=== PATIENT | male | born 1990 | race Caucasian/White ===

== ENCOUNTER 2019-02-20 17:12 | Emergency (ER) | payer BC ==
[~2019-02-20] VITALS: Ht 198.1 cm; Wt 84.1 kg
[2019-02-20 17:42] VITALS: BP 135/86
[2019-02-20] MEDS ORDERED: AMOXICILLIN 50500 MG PO (20:06)
[2019-02-20 20:37] LABS: BASO % 0.3 % (0.0-2.0); EOS % 0.3 % (0-4.0); GRAN # 9.1 (1.4-6.5); GRAN % 78.7 % (42.2-75.2); HEMOGLOBIN 16.1 g/dl (13.5-18.0); LYMPH # 1.6 (1.2-3.4); MEAN CELL VOLUME 89 fl (80.0-100.0); MEAN CORPUSCULAR HEMOGLOBIN 32 pg (27.0-31.0); MEAN CORPUSCULAR HGB CONC 36 g/dl (33.0-37.0); MEAN PLATELET VOLUME 10.6 fl (7.4-10.4); MONO # 0.7 (0.1-0.6); MONO % 6.4 % (1.7-9.3); PLATELET COUNT 234 K/mm3 (130-400); RED BLOOD COUNT 5.06 M/mm3 (4.20-5.60); REDCELL DISTRIBUTION WIDTH-CV 11.7 % (11.5-14.5)
[2019-02-20 20:56] LABS: CALCIUM 9.3 mg/dL (8.4-10.2); CREATININE, serum 0.78 (0.66-1.25); POTASSIUM 3.7 mmol/L (3.4-5.0)
[2019-02-20 21:35] VITALS: PULSE 78; TEMP 98.2
== END 2019-02-20 21:40 | disposition home or self-care (01) ==
LOC: COL.ER 17:12
PROVIDERS: Physician Assistant
DX: Z71.1 Person with feared health complaint in whom no diagnosis is made (principal)

== ENCOUNTER 2023-01-30 08:04 | Day surgery (SDC) | payer BC ==
[~2023-01-30] VITALS: Ht 198.1 cm; Wt 89.8 kg
[~2023-01-30 08:04] MED LIST: AMOXICILLIN 50500 MG PO
[2023-01-30 08:51] VITALS: BP 113/80; PULSE 88; TEMP 97.5
[2023-01-30] MEDS ORDERED: ADVIL200 MG PO (08:57)
[2023-01-30] MEDS ORDERED: TYLENOL 500MG500 MG PO (08:57)
[2023-01-30 11:00] VITALS: BP 114/74; PULSE 78; TEMP 98.2
--- NOTE | 2023-01-30 11:00 | NUR ---
The patient arrived back to [facility] from endoscopy suite at this time. The patient ambulated from the cart to the recliner in his room with the stand by assistance of two nurses and appeared to tolerate the activity well. Vital signs were started at this time. Call light is within reach. Friend at bedside. Warm blanket provided. The patient denies wanting to try anything to eat or drink at this time.
[2023-01-30 11:15] VITALS: BP 126/83; PULSE 74
--- NOTE | 2023-01-30 11:15 | NUR ---
The patient appears more alert and agrees to try some apple juice and a muffin. Vital signs appear stable. Call light is within reach. Friend remains at his bedside.
[2023-01-30 11:30] VITALS: BP 120/79; PULSE 76
--- NOTE | 2023-01-30 11:30 | NUR ---
Dr. Blum is at the patient's bedside to speak with him and his friend regarding the findings of the procedure.
--- NOTE | 2023-01-30 11:40 | NUR ---
Discharge instructions were reviewed with th patient and his friend at this time. They both verbalized understanding and have no questions for the nurse at this time. The patient's IV to his right hand was removed and a pressure dressing was applied to the site. The nurse instructed the patient to finish his food and drink, get dressed and notify the staff when he is ready to be escorted out.
--- NOTE | 2023-01-30 11:50 | NUR ---
The patient was escorted out via wheelchair to a private vehicle by KAREN Houston. The patient's belongings and discharge paperwork were sent with him. The patient's friend, Niranjan, is present to drive him home.
== END 2023-01-30 11:50 | disposition home or self-care (01) ==
LOC: SDCO 08:04
DX: K62.89 Other specified diseases of anus and rectum (principal); K59.00 Constipation, unspecified; R19.7 Diarrhea, unspecified; R14.0 Abdominal distension (gaseous)
CPT/HCPCS: J2704; J7120